=== PATIENT | female | born 1945 | race Caucasian/White ===

== ENCOUNTER 2024-02-12 10:00 | Outpatient (RCR) | payer MEDICARE, BC, SELFPAY | END 2024-06-11 23:59 | disposition home or self-care (01) | PROVIDERS: PCP Family Medicine; Visit Provider Student in an Organized Health Care Education/Training Program | DX: N39.46 Mixed incontinence (principal); R27.8 Other lack of coordination; Z51.89 Encounter for other specified aftercare | CPT/HCPCS: 97110; 97112; 97140; 97162; 97535 ==